=== PATIENT | female | born 1975 | race Caucasian/White ===

== ENCOUNTER → 2016-11-05 | Day surgery (SDC) | payer OTHER ==
[~2016-11-05] VITALS: Ht 182.9 cm; Wt 145.1 kg
[~2016-11-05] MED LIST: ACETAMINOPHEN/O1 TA2 PO; ALPRAZOLAM2 MG PO; ATIVAN1 M1 PO; AUGMENTIN 500-1 EACH PO; CARISOPRODOL350 MG PO; CYMBALTA60 MG PO; DIAZEPAM10 MG PO; FLEXERIL10 MG PO; FLUTICASON0.05 MG/Ac NASB; IBUPROFEN800 MG PO; LASIX20 MG PO; MEDROL DOSEPAK1 PAC PO; NOVAPLUS FE50 MCG/HR TOP; PERCOCET 325 MG1 TA2 PO; PREDNISONE50 MG PO; TIZANIDINE4 MG PO; TORADOL10 MG PO; VALIUM5 M1 PO; VITAMIN D50000 IU PO
--- NOTE | 2016-11-05 11:51 | Operative Report ---
Operative/Inv Procedure Report Surgery Date: 11/05/16 Name of Procedure: Laser vaporization of the vulva Pre-Operative Diagnosis: vulva condyloma Post-Operative Diagnosis: Same Estimated Blood Loss: less than 50ml Surgeon/Rn Gastroenterology: SHAYNE VAZQUEZ MD Anesthesia: laryngeal mask airway Operative/Procedure Note Note: Procedure note patient was taken the operating room placed supine position after adequate anesthesia patient placed in dorsolithotomy position the vagina from dorsal fashion wet towels were used at this point Marcaine was injected underneath the condyloma on the posterior fourchette with the laser on 7 the condyloma were removed from the vulva hemostasis was apparent Silvadene cream was applied on oral instruments removed from the vagina the counts correct the patient was awakened from anesthesia and transferred recovery room alert Findings: Condyloma by the clitoris on the left condyloma on the posterior fourchette of the vagina condyloma on the right labia minora
== END ==
LOC: STS 10-15 07:00
DX: A63.0 Anogenital (venereal) warts (principal); M54.9 Dorsalgia, unspecified; G89.29 Other chronic pain; Z79.899 Other long term (current) drug therapy; F17.200 Nicotine dependence, unspecified, uncomplicated
CPT/HCPCS: J2250

== ENCOUNTER 2018-01-26 11:15 | Emergency (ER) | payer OTHER ==
[~2018-01-26] VITALS: Ht 180.3 cm; Wt 156.5 kg
[~2018-01-26 11:15] MED LIST changes: +BUSPIRONE HCL7.5 M1 PO; +CYMBALTA60 M1 PO; -CYMBALTA60 MG PO; -FLUTICASON0.05 MG/Ac NASB; +FLUTICASONE PRO16 GM NASB; +LYRICA75 M1 PO; +MELOXICAM15 M1 PO; +PERCOCET 10-321 EACH PO; +PROTONIX40 M3 PO; -TIZANIDINE4 MG PO; +TRAZODONE HCL150 M1 PO; +VALTREX1000 MG PO; +WELLBUTRIN XL150 M2 PO; +ZANAFLEX4 M2 PO
--- NOTE | 2018-01-26 13:03 | ED NECK/BACK PAIN COMPLAINT ---
History of Present Illness General Chief Complaint: Low Back Pain/Injury Stated Complaint: LBP Source: patient Exam Limitations: no limitations Allergies Coded Allergies: fluconazole (Intermediate, welts on chest 01/26/18) ciprofloxacin (From CIPRO) (HIVES 01/26/18) Sulfa (Sulfonamide Antibiotics) (Intermediate, RASH 01/26/18) Reconcile Medications Duloxetine HCl (Cymbalta) 60 MG CAPSULE.DR 1 CAP PO DAILY NEUROPATHY ( Reported) Fluticasone Propionate 50 MCG/ACTUATION SPRAY.SUSP 2 SPRAY NASB DAILY ALLERGIES (Reported) Lorazepam 2 MG TABLET 1 TAB PO TIDPRN PRN MUSCLE (Reported) Meloxicam 15 MG TABLET 1 TAB PO DAILY PAIN (Reported) Oxycodone HCl/Acetaminophen (Percocet 10-325 MG Tablet) 10 MG-325 MG TABLET 1 TAB PO 4 TIMES/DAY PAIN (Reported) Pantoprazole Sodium (Protonix) 40 MG TABLET.DR 1 TAB PO DAILY GERD (Reported) Pregabalin (Lyrica) 75 MG CAPSULE 1 CAP PO TID PRN PAIN (Reported) Tizanidine HCl (Zanaflex) 4 MG CAPSULE 1 TAB PO 4 TIMES/DAY MUSCLE SPASMS ( Reported) Valacyclovir HCl (Valtrex) 1,000 MG TABLET 1 TAB PO BID GENITAL HERPES ( Reported) Triage Note: PT TO ED FOR C/C OF LOWER BACK PAIN THAT RADIATES INTO BILATERAL KNEES X 1 WEEK. HX CHRONIC BACK PAIN, IN PAIN MANAGEMENT, TOOK PERCOCET AT HOME WITHOUT RELIEF. Triage Nurses Notes Reviewed? yes Onset: ACUTE ON CHRONIC Duration: week(s):, constant Timing: recent history Quality/Severity: moderate, severe Location: lumbar spine Method of Injury: unknown Loss of Consciousness: no loss of consciousness : No Patient currently breastfeeds: No HPI: 42-year-old female comes into the emergency room complains of low back pain. Patient reports that she's had chronic back pain issues and is in pain management. She reports that she's been having some urinary incontinence and bowel incontinence following him for the past 6 months. She was told to come into the emergency room for imaging of her lower back so that her doctor who is on vacation currently can review it when he returns. She has chronic pain and weakness in her left leg that is at her normal baseline. She had surgery between L1 and L5 2 years ago. (Prasanna Holland) Vital Signs & Intake/Output Vital Signs & Intake/Output Vital Signs Date Time Temp Pulse Resp B/P B/P Pulse O2 O2 Flow FiO2 Mean Ox Delivery Rate 01/26 1844 80 18 132/67 97 Room Air 01/26 1127 98.0 76 15 122/81 99 Room Air Room Air ED Intake and Output 01/27 0000 01/26 1200 Intake Total Output Total Balance Patient 345 lb Weight Weight Reported by Patient Measurement Method (Arturo Cooper) Past History Travel History Traveled to [place] past 21 day No Medical History Any Pertinent Medical History? 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 No (Prasanna Holland) Review of Systems Review of Systems Constitutional: Reports: no symptoms. Eyes: Reports: no symptoms. Ears, Nose, Throat, Mouth: Reports: no symptoms. Respiratory: Reports: no symptoms. Cardiovascular: Reports: no symptoms. Gastrointestinal/Abdominal: Reports: no symptoms. Musculoskeletal: Reports: see HPI. Skin: Reports: no symptoms. Neurological/Psychological: Reports: no symptoms. All Other Systems: Reviewed and Negative (Prasanna Holland) Physical Exam Physical Exam General Appearance: well developed/nourished, mild distress Head: atraumatic Eyes: Bilateral: normal appearance. Ears, Nose, Throat, Mouth: hearing grossly normal, moist mucous membrane Neck: normal inspection Respiratory: no respiratory distress Cardiovascular: regular rate/rhythm Back: normal inspection, midline tenderness low back, left lower back pain Extremities: normal range of motion Neurologic/Psych: awake, alert, oriented x 3, normal mood/affect Skin: intact, normal color, warm/dry Comments: 4/5 strength LLE, 5/5 strength RLE (Prasanna Holland) Core Measures CVA/TIA Diagnosis: No (Arturo Cooper) Progress Differential Diagnosis: cauda equina syn, herniated disc, myofascial strain, pyelo/UTI, sciatica, spinal cord inj, thoracic outlet syn Plan of Care: Orders Procedure Date/time Status MRI-LUMBAR SPINE 01/27 1228 Active 1710 patient resting in no acute distress at this time pending MRI I discussed with the patient her MRI results and need for follow up with her spine physician who she is scheduled to see next week. Return precautions were discussed at length she is ambulatory with steady gait upon discharge (Arturo Cooper) Diagnostic Imaging: Viewed by Me: MRI. Discussed w/RAD: MRI. Hand-Off Endorsed To: Arturo Cooper Endorsed Time: 1544 Pending: MRI (Prasanna Holland) Diagnostic Imaging: Viewed by Me: MRI. Discussed w/RAD: MRI. Radiology Impression: PATIENT: DANY TRAN PRESENT AGE: 42 PATIENT ACCOUNT NO: [id number] : 77 LOCATION: [facility] ORDERING PHYSICIAN: Prasanna STEVEN SERVICE DATE: 01/26/18 EXAM TYPE: MRI - MRI-LUMBAR SPINE EXAMINATION: MR LUMBAR SPINE WITHOUT CONTRAST CLINICAL INFORMATION: Acute on chronic low back pain. Assess for cauda equina. COMPARISON : CT scan of the abdomen and pelvis 05/04/2015. TECHNIQUE: MRI of the lumbar spine without contrast was obtained using routine sequences. FINDINGS: VERTEBRAL BODIES AND PARASPINAL STRUCTURES: There is straightening of the lumbar lordosis. In addition, there are retrolistheses of L2 on L3 and L5 on S1. There is narrowing of intervertebral disc height at these levels and there are moderate degenerative endplate signal and contour changes. Vertebral body heights are maintained and there are no compression fractures. Overall, marrow signal is homogenous. The retroperitoneal and pelvic structures are unremarkable. CONUS MEDULLARIS AND CAUDA EQUINA: Normal, terminating at the level of L1. The lower thoracic spinal cord appears normal. There is fatty signal in a mildly thickened filum terminale. The cauda equina nerve roots appear normal.. SPINAL LEVELS: T12 -L1: There is a small posterior disc protrusion with minimal distortion of the thecal sac. There is mild bilateral facet arthropathy. The neural foramina are patent bilaterally. There is no central stenosis. L1-L2: There is mild bilateral facet arthropathy. There is a posterior disc protrusion with an annular fissure which is broad-based and mildly distorts the ventral thecal sac. There is no central stenosis. The neural foramina are patent. L2-L3: There is moderate bilateral facet arthropathy. There are postoperative equivocal changes which appear to be from a right-sided hemilaminectomy. There is a broad-based posterior disc protrusion with an annular fissure which is more prominent centrally and toward the right and extends into the right neural foramen. There is narrowing of the right subarticular recess. There is no central stenosis. L3- L4: There is moderate bilateral facet arthropathy with ligamenta flava hypertrophy and facet joint effusions. There is a central and left paracentral disc protrusion extending into the inferior left neural foramen. There is narrowing of the left subarticular recess. There is no central stenosis. L4-L5: There is bilateral facet arthropathy. There are equivocal postoperative changes from a left-sided hemilaminectomy. There is a posterior disc protrusion with mild distortion of the ventral thecal sac. The neural foramina are patent. There is no central stenosis. L5-S1: There is mild bilateral facet arthropathy. There is a broad-based posterior disc protrusion extending into the neural foramina bilaterally, more prominently on the left. There is mild impingement on the traversing left S1 nerve root. There is no central stenosis. IMPRESSION: 1. The lower thoracic spinal cord appears normal. 2. There is a broad-based posterior disc protrusion at L2-L3 which extends into the right neural foramen. There is narrowing of the right subarticular recess. 3. There is a central and left paracentral disc protrusion at L3-L4 extending into the left neural foramen and there is narrowing of the left subarticular recess. 4. There is a broad-based posterior disc protrusion at L5-S1 extending into the left greater than right neural foramina. There is mild impingement on the traversing left S1 nerve root. 5. There appear to be sequelae of hemilaminectomies on the right at L2-L3 and on the left at L4-L5. Correlate with surgical history. DICTATED BY: Curt Rodriguez MD DATE/TIME DICTATED:01/26/181840 CUSTOM SEAMSTRESS:RICARDO DATE/TIME TRANSCRIBED:01/26/181840 CONFIDENTIAL, DO NOT COPY WITHOUT APPROPRIATE AUTHORIZATION. (Arturo Cooper) Departure Departure Condition: Stable Referrals: Jenny Hayes MD (PCP/Family) Departure Forms: Customer Survey General Discharge Information (Prasanna Holland) Departure Time of Disposition: 1906 Disposition: HOME OR SELF CARE Clinical Impression Primary Impression: Chronic back pain Additional Instructions: Continue taking your medication as prescribed. Follow-up with your physician as discussed return with any concerns. (Isaiah STEVEN,Arturo) PA/SWITCH TECHNICIAN Co-Sign Statement Statement: ED Attending supervision documentation- [] I saw and evaluated the patient. I have also reviewed all the pertinent lab results and diagnostic results. I agree with the findings and the plan of care as documented in the PA's/SWITCH TECHNICIAN's documentation. [X] I have reviewed the ED Record and agree with the PA's/SWITCH TECHNICIAN's documentation. [] Additions or exceptions (if any) to the PAs/SWITCH TECHNICIAN's note and plan are summarized below: [] (Derian Borrero DO
[2018-01-26] MEDS ORDERED: LORAZEPAM2 M1 PO (13:10)
[2018-01-26 18:44] VITALS: BP 132/67
--- NOTE | 2018-01-26 18:59 | MRI REPORT ---
EXAMINATION: MR LUMBAR SPINE WITHOUT CONTRAST CLINICAL INFORMATION: Acute on chronic low back pain. Assess for cauda equina. COMPARISON: CT scan of the abdomen and pelvis 05/04/2015. TECHNIQUE: MRI of the lumbar spine without contrast was obtained using routine sequences. FINDINGS: VERTEBRAL BODIES AND PARASPINAL STRUCTURES: There is straightening of the lumbar lordosis. In addition, there are retrolistheses of L2 on L3 and L5 on S1. There is narrowing of intervertebral disc height at these levels and there are moderate degenerative endplate signal and contour changes. Vertebral body heights are maintained and there are no compression fractures. Overall, marrow signal is homogenous. The retroperitoneal and pelvic structures are unremarkable. CONUS MEDULLARIS AND CAUDA EQUINA: Normal, terminating at the level of L1. The lower thoracic spinal cord appears normal. There is fatty signal in a mildly thickened filum terminale. The cauda equina nerve roots appear normal.. SPINAL LEVELS: T12-L1: There is a small posterior disc protrusion with minimal distortion of the thecal sac. There is mild bilateral facet arthropathy. The neural foramina are patent bilaterally. There is no central stenosis. L1-L2: There is mild bilateral facet arthropathy. There is a posterior disc protrusion with an annular fissure which is broad-based and mildly distorts the ventral thecal sac. There is no central stenosis. The neural foramina are patent. L2-L3: There is moderate bilateral facet arthropathy. There are postoperative equivocal changes which appear to be from a right-sided hemilaminectomy. There is a broad-based posterior disc protrusion with an annular fissure which is more prominent centrally and toward the right and extends into the right neural foramen. There is narrowing of the right subarticular recess. There is no central stenosis. L3-L4: There is moderate bilateral facet arthropathy with ligamenta flava hypertrophy and facet joint effusions. There is a central and left paracentral disc protrusion extending into the inferior left neural foramen. There is narrowing of the left subarticular recess. There is no central stenosis. L4-L5: There is bilateral facet arthropathy. There are equivocal postoperative changes from a left-sided hemilaminectomy. There is a posterior disc protrusion with mild distortion of the ventral thecal sac. The neural foramina are patent. There is no central stenosis. L5-S1: There is mild bilateral facet arthropathy. There is a broad-based posterior disc protrusion extending into the neural foramina bilaterally, more prominently on the left. There is mild impingement on the traversing left S1 nerve root. There is no central stenosis. IMPRESSION: 1. The lower thoracic spinal cord appears normal. 2. There is a broad-based posterior disc protrusion at L2-L3 which extends into the right neural foramen. There is narrowing of the right subarticular recess. 3. There is a central and left paracentral disc protrusion at L3-L4 extending into the left neural foramen and there is narrowing of the left subarticular recess. 4. There is a broad-based posterior disc protrusion at L5-S1 extending into the left greater than right neural foramina. There is mild impingement on the traversing left S1 nerve root. 5. There appear to be sequelae of hemilaminectomies on the right at L2-L3 and on the left at L4-L5. Correlate with surgical history.
== END 2018-01-26 19:13 ==
LOC: ERH 11:15
DX: M54.5 Low back pain (principal); G89.29 Other chronic pain
CPT/HCPCS: 72148